=== PATIENT | female | born 1980 ===

== ENCOUNTER → 2018-12-25 | Outpatient (CLI) | payer OTHER ==
--- NOTE | 2018-12-26 17:24 | MAM ---
EXAM DESCRIPTION: 3D Screening BILATERAL : Digital Mammography. CLINICAL HISTORY: 38 years Female SCREEN .. No complaints. No personal or family history of breast cancer. Childbirth. IUD for 10+ years. No HRT. Lifetime risk of developing breast cancer (Tyrer-Cuzick model)(%): 8.3. COMPARISON: None available. No prior reports available. TECHNIQUE: Bilateral CC and MLO projection full-field images, digital tomosynthesis mammographic technique. Bilateral digital 2-D full-field MLO images. CAD not available for tomosynthesis or 2-D images. FINDINGS: The breast parenchymal density pattern is: Heterogeneously dense breast tissue, which may obscure small masses. No skin thickening or nipple retraction. Focal asymmetry in the middle third of the left breast at the 2 30-3 30 clock position, 5 cm from the nipple. Not associated with microcalcifications. Focal asymmetry in the posterior third of the upper right breast approximately 6 cm from the nipple. Not associated with microcalcifications. IMPRESSION: BI-RADS CATEGORY: 0 - INCOMPLETE- Need additional imaging evaluation. FOLLOW-UP: Recall for additional imaging: Bilateral full-field LM tomosynthesis and LM 2-D images. Bilateral targeted breast ultrasound of the regions of interest.. Written communication concerning the IMPRESSION and Follow-up, will be mailed to the patient and referring health care provider. Electronically signed by: Igor Cutler MD 12/26/2018 5:23 PM CDT
== END ==
LOC: MAMMO 12:30
PROVIDERS: ATTEND Obstetrics & Gynecology
DX: Z12.31 Encounter for screening mammogram for malignant neoplasm of breast (principal)

== ENCOUNTER → 2019-01-08 | Outpatient (CLI) | payer OTHER ==
--- NOTE | 2019-01-08 13:35 | MAM ---
EXAM DESCRIPTION: Breast,Bilateral (accession [id number]), ultrasound. 3D Diagnostic, Bilateral (accession [id number]): Digital mammography. CLINICAL HISTORY: 38 yearsFemaleABN MAMMO focal asymmetry bilateral breasts. COMPARISON: Bilateral screening digital breast tomosynthesis 12/25/2018. TECHNIQUE: Bilateral LM projection full-field images, digital mammographic tomosynthesis technique. Bilateral 2-D digital full-field images. LM projection. CAD not available . Transcutaneous scanning of the bilateral breasts utilizing pedroza-scale and Doppler modes. Scanning performed by the lift truck operator ; observation by Dr. Cutler. FINDINGS: The breast parenchymal density pattern is: Heterogeneously dense breast tissue, which may obscure small masses. No skin thickening or nipple retraction . On the LM tomosynthesis bilaterally, focal asymmetry again visualized in the middle third of the right breast, 12:00 position, 6 cm from the nipple. Focal asymmetry middle third of the left breast] 12:00-1:00 position 5 cm from the nipple. No suspicious microcalcifications bilaterally. Ultrasound: Scanning of the middle third of right breast. Emphasis at the 12:00 position 6 cm from the nipple. Mostly fibroglandular elements. Minimal fatty replacement. No dominant solid mass or distinct cyst. No parenchymal edema or large calcifications. No overlying skin changes. Scanning of the middle third of the left breast, emphasis at the 12:00-1:00 position 5 cm from the nipple. Mostly fibroglandular elements with minimal fatty replacement. No dominant solid mass or distinct cyst. No parenchymal edema or large calcifications. No overlying skin changes. Normal vascularity. IMPRESSION: Benign exam. BIRAD CATEGORY: 2 BENIGN FINDINGS. RECOMMENDATIONS: FOLLOW UP: Return to routine digital bilateral mammographic screening, one year interval from December 2018. Written communication explaining the IMPRESSION and follow-up, will be mailed to the patient and referring health care provider. The FINDINGS and the FOLLOW-UP plan were reviewed in person with the patient after the examination. According to the [employer], yearly mammograms are recommended starting at age 40 and continuing as long as a woman is in good health. Any breast change noted on a breast self-exam should be reported promptly to the patient's healthcare provider. Breast MRI is recommended for women with an approximately 20-25% or greater lifetime risk of breast cancer, including women with a strong family history of breast or ovarian cancer and women who have been treated for Hodgkin's disease. A negative mammographic report should not delay tissue diagnosis in patients with significant clinical history or physical findings. Extremely dense breast tissue limits the sensitivity of digital mammography. Electronically signed by: Igor Cutler MD 01/08/2019 1:33 PM CDT
== END ==
LOC: MAMMO 07:49
PROVIDERS: ATTEND Obstetrics & Gynecology
DX: R92.8 Other abnormal and inconclusive findings on diagnostic imaging of breast (principal)
CPT/HCPCS: 76641; 77066; G0279